=== PATIENT | male | born 1975 | race Caucasian/White ===

== ENCOUNTER → 2021-05-14 14:51 | Outpatient (CLI) | payer OTHER, SELFPAY ==
[2021-05-14 15:40] LABS: Add Manual Diff / Slide Review NO; Basophils Absolute Auto 100 /uL (0-100); Basophils Percent Auto 0.9 % (0-2); Eosinophils Absolute Auto 300 /uL (0-450); Eosinophils Percent Auto 2.6 % (2-4); Hematocrit 46.8 % (41-53); Hemoglobin 15.9 g/dL (13.5-17.5); Lymphocytes Absolute Auto 2600 /uL (1100-4500); Mean Corpuscular HGB Conc 33.9 % (30-36); Mean Corpuscular Hemoglobin 33.5 PG (26-34); Mean Corpuscular Volume 98.9 fL (80-100); Monocytes Absolute Auto 600 /uL (0-900); Monocytes Percent Auto 5.3 % (3-14); Neutrophils Absolute Auto 7700 /uL (1500-7000); Neutrophils Percent Auto 68.2 % (50-75); Platelet Count 314 X10^3/uL (150-400); Red Blood Cell Count 4.73 X10^6/uL (4.5-5.9); Red Cell Distribution Width 13.7 % (11.6-14.8); White Blood Cell Count 11.3 X10^3/uL (4.5-11.0)
[2021-05-14 15:56] LABS: Alanine Aminotransferase 23 IU/L (<50); Albumin 4.5 g/dL (3.5-5.0); Albumin Globulin Ratio 1.6 (1.0-2.8); Alkaline Phosphatase 116 U/L (38-126); Aspartate Aminotransferase 31 IU/L (17-59); BUN Creatinine Ratio 8.6 (6-22); Bilirubin Total 0.7 mg/dL (0.2-1.3); Blood Urea Nitrogen 8 mg/dL (9-20); Calcium 9.6 mg/dL (8.4-10.2); Carbon Dioxide 27 mmol/L (22-32); Chloride 107 mmol/L (98-107); Estimated Glomerular Filt Rate > 60.0 mL/min (>60); Globulin 2.9 g/dL (1.7-4.1); Glucose 97 mg/dL (70-100); HEMOLYSIS < 15 (0-50); Lipase 85 U/L (23-300); Potassium 3.5 mmol/L (3.4-5.1); Sodium 140 mmol/L (137-145); Total Protein 7.4 g/dL (6.3-8.2)
[2021-05-14 16:28] LABS: Creatinine Urine Random 295.5 mg/dL
[2021-05-14 16:33] LABS: Microalbumin Urine Random 0.9 mg/dL (0-1.6)
== END ==
PROVIDERS: PCP Family Medicine; Referring Provider Family Medicine; Visit Provider Family Medicine
DX: R10.9 Unspecified abdominal pain (principal); Z90.49 Acquired absence of other specified parts of digestive tract
CPT/HCPCS: 36415; 80053; 82043; 82570; 83690; 85025

== ENCOUNTER → 2021-10-30 09:43 | Outpatient (CLI) | payer OTHER, MEDICAID, SELFPAY ==
[2021-10-30 10:25] LABS: Add Manual Diff / Slide Review NO; Basophils Absolute Auto 100 /uL (0-100); Basophils Percent Auto 1.1 % (0-2); Eosinophils Absolute Auto 400 /uL (0-450); Eosinophils Percent Auto 5.4 % (2-4); Hematocrit 46.9 % (41-53); Hemoglobin 16.3 g/dL (13.5-17.5); Lymphocytes Absolute Auto 2400 /uL (1100-4500); Lymphocytes Percent Auto 35.5 % (25-40); Mean Corpuscular HGB Conc 34.7 % (30-36); Mean Corpuscular Hemoglobin 34.4 PG (26-34); Mean Corpuscular Volume 99.1 fL (80-100); Monocytes Absolute Auto 400 /uL (0-900); Monocytes Percent Auto 5.8 % (3-14); Neutrophils Absolute Auto 3500 /uL (1500-7000); Neutrophils Percent Auto 52.2 % (50-75); Platelet Count 296 X10^3/uL (150-400); Red Blood Cell Count 4.73 X10^6/uL (4.5-5.9); Red Cell Distribution Width 13.5 % (11.6-14.8); White Blood Cell Count 6.7 X10^3/uL (4.5-11.0)
[2021-10-30 10:38] LABS: Hemoglobin A1C% w Est Avg Glu 5.3 % (4.0-6.0)
[2021-10-30 10:49] LABS: Erythrocyte Sedimentation Rate 1 MM/HR (0-15)
[2021-10-30 11:23] LABS: Alanine Aminotransferase 27 IU/L (<50); Albumin Globulin Ratio 1.7 (1.0-2.8); Alkaline Phosphatase 120 U/L (38-126); Aspartate Aminotransferase 32 IU/L (17-59); BUN Creatinine Ratio 15.7 (6-22); Bilirubin Total 1.3 mg/dL (0.2-1.3); Blood Urea Nitrogen 18 mg/dL (9-20); Calcium 9.8 mg/dL (8.4-10.2); Carbon Dioxide 26 mmol/L (22-32); Chloride 104 mmol/L (98-107); Estimated Glomerular Filt Rate > 60.0 mL/min (>60); Globulin 2.9 g/dL (1.7-4.1); Glucose 92 mg/dL (70-100); HEMOLYSIS < 15 (0-50); Potassium 4.6 mmol/L (3.4-5.1); Sodium 140 mmol/L (137-145); Total Protein 7.9 g/dL (6.3-8.2)
[2021-10-30 11:57] LABS: TSH w/ Reflex to FT4 1.28 uIU/mL (0.47-4.68)
== END ==
PROVIDERS: PCP Family Medicine; Referring Provider Family Medicine; Visit Provider Family Medicine
DX: D35.00 Benign neoplasm of unspecified adrenal gland (principal); D72.829 Elevated white blood cell count, unspecified; I10 Essential (primary) hypertension; R00.0 Tachycardia, unspecified
CPT/HCPCS: 36415; 80053; 83036; 84443; 85025; 85651

== ENCOUNTER → 2021-11-03 09:37 | Outpatient (CLI) | payer OTHER, MEDICAID, SELFPAY ==
[2021-11-06 09:53] LABS: Dopamine, Ur 24hr 136 ug/24 hr (0-510); Epinephrine, U 24hr 13 ug/24 hr (0-20); Norepinephrine Ur 24hr 50 ug/24 hr (0-135)
[2021-11-06 11:34] LABS: Normetanephrine Total 382 ug/24 hr (156-729); Urine, Metanephrine 205 ug/L (Undefined); Urine, Normetanephrine 382 ug/L (Undefined)
== END ==
PROVIDERS: PCP Family Medicine; Referring Provider Family Medicine; Visit Provider Family Medicine
DX: R00.0 Tachycardia, unspecified (principal); D72.829 Elevated white blood cell count, unspecified; I10 Essential (primary) hypertension; D35.00 Benign neoplasm of unspecified adrenal gland
CPT/HCPCS: 82384; 83835

== ENCOUNTER → 2021-11-05 14:20 | Outpatient (CLI) | payer OTHER, MEDICAID, SELFPAY ==
--- NOTE | 2021-11-05 14:21 | DI.CT.S_ITS ---
PROCEDURE: CT ABDOMEN PELVIS W CON INDICATIONS: Patient has unexplained tachycardia, diaphoresis HTN TECHNIQUE: After the administration of oral and IV contrast, axial sections were acquired from the lung bases to the pubic symphysis. Coronal and sagittal reformats were performed. For radiation dose reduction, the following was used: automated exposure control, adjustment of mA and/or kV according to patient size. COMPARISON: [facility], CT, CT ABDOMEN PELVIS WITH CONTRAST, 11/22/2019, 10:06. [facility], CT, CT ABDOMEN PELVIS WITH CONTRAST, 10/11/2019, 16:59. [facility], CT, CT ABDOMEN PELVIS WITH CONTRAST, 12/30/2018, 16:46. [facility], CT, CT ABDOMEN PELVIS WITH CONTRAST, 04/15/2020, 16:10. Outside Film, CT, CT ANGIO ABDOMEN PELVIS, 06/07/2020, 12:59. [facility], CT, CT ABDOMEN PELVIS WITH CONTRAST, 09/24/2021, 20:19. FINDINGS: Image quality: Excellent. Lung bases: Unremarkable. Heart: No significant findings. ABDOMEN: Liver: Unremarkable. A 0.5 cm low-density nodule in the left hepatic lobe is unchanged, most likely a cyst. Gallbladder: Surgically absent. Biliary ducts: Unremarkable. Pancreas: Unremarkable. Spleen: Unremarkable. Adrenal Glands: Mild thickening of the medial limb of the left adrenal. A small left adrenal nodule measuring 0.8 cm as seen on the last exam. Kidneys and Ureters: Unremarkable. Stomach and Bowel: Stomach, small bowel loops, and colon are unremarkable. Appendix is normal. Peritoneum: No abnormal intraperitoneal fluid. No free air. Ventral Wall: No hernia. Abdominal Nodes: No retroperitoneal or mesenteric adenopathy by size criteria. Vessels: Aorta and inferior vena cava are normal in size. PELVIS: Pelvic Organs: Unremarkable. Bladder: Unremarkable. Pelvic Nodes: No enlarged lymph nodes. Miscellaneous: No inguinal hernias are seen. Bones: Unremarkable. IMPRESSION: 1. No acute abnormalities in abdomen or pelvis. 2. Stable 0.8 cm left adrenal nodule. 3. A 0.5 cm indeterminate hypodense nodule in liver, most likely a cyst. Dictated by: Teri Smith M.D. on 11/05/2021 at 17:32 Approved by: Teri Smith M.D. on 11/06/2021 at 9:36
== END ==
PROVIDERS: PCP Family Medicine; Referring Provider Family Medicine; Visit Provider Family Medicine
DX: K76.9 Liver disease, unspecified (principal); D35.00 Benign neoplasm of unspecified adrenal gland; D72.829 Elevated white blood cell count, unspecified; R00.0 Tachycardia, unspecified; I10 Essential (primary) hypertension
CPT/HCPCS: 74177; Q9967

== ENCOUNTER → 2022-03-20 16:05 | Outpatient (CLI) | payer OTHER, MEDICAID, SELFPAY ==
[2022-03-20 17:57] LABS: Alanine Aminotransferase 25 IU/L (<50); Albumin 4.5 g/dL (3.5-5.0); Albumin Globulin Ratio 1.6 (1.0-2.8); Alkaline Phosphatase 99 U/L (38-126); Aspartate Aminotransferase 30 IU/L (17-59); BUN Creatinine Ratio 9.6 (6-22); Bilirubin Total 0.5 mg/dL (0.2-1.3); Blood Urea Nitrogen 10 mg/dL (9-20); Calcium 9.3 mg/dL (8.4-10.2); Carbon Dioxide 28 mmol/L (22-32); Chloride 105 mmol/L (98-107); Estimated Glomerular Filt Rate > 60 mL/min (>60); Globulin 2.8 g/dL (1.7-4.1); Glucose 85 mg/dL (70-100); HEMOLYSIS < 15 (0-50); Potassium 4.2 mmol/L (3.4-5.1); Sodium 139 mmol/L (137-145); Total Protein 7.3 g/dL (6.3-8.2)
[2022-03-20 17:58] LABS: Hemoglobin A1C% w Est Avg Glu 5.3 % (4.0-6.0)
[2022-03-20 18:04] LABS: Rheumatoid Factor < 8.6 IU/mL (<12.0)
[2022-03-20 18:25] LABS: Erythrocyte Sedimentation Rate 1 MM/HR (0-15)
[2022-03-25 15:08] LABS: ANA Screen, IFA Negative (.); CCP Antibodies IgG/IgA 8 units (0-19)
== END ==
PROVIDERS: PCP Family Medicine; Referring Provider Family Medicine; Visit Provider Family Medicine
DX: F41.9 Anxiety disorder, unspecified (principal); M25.50 Pain in unspecified joint; R00.0 Tachycardia, unspecified
CPT/HCPCS: 36415; 80053; 83036; 85651; 86038; 86200; 86430

== ENCOUNTER → 2023-07-22 14:41 | Outpatient (CLI) | payer OTHER, SELFPAY | PROVIDERS: PCP Family Medicine; Visit Provider Physician Assistant | DX: D72.829 Elevated white blood cell count, unspecified (principal); E27.40 Unspecified adrenocortical insufficiency | CPT/HCPCS: 87086 ==

== ENCOUNTER → 2023-07-22 14:58 | Outpatient (CLI) | payer OTHER, SELFPAY ==
--- NOTE | 2023-07-22 15:00 | DI.RAD.S_ITS ---
PROCEDURE: XR CHEST 2V INDICATIONS: Elevated WBCs w/L shift Smoker TECHNIQUE: 2 views of the chest were acquired. COMPARISON: None. FINDINGS: Surgical changes and devices: None. Lungs and pleura: Lungs are clear. No pleural effusions or pneumothorax. Mediastinum: Mediastinal contours are normal. Heart size is normal. Bones and chest wall: No suspicious bony abnormalities. Soft tissues appear unremarkable. IMPRESSION: No acute cardiopulmonary abnormality is seen. Approved by: Cristi Limon M.D. on 07/22/2023 at 19:27
== END ==
PROVIDERS: PCP Family Medicine; Referring Provider Physician Assistant; Visit Provider Physician Assistant
DX: D72.829 Elevated white blood cell count, unspecified (principal); E27.40 Unspecified adrenocortical insufficiency
CPT/HCPCS: 71046; 87086

== ENCOUNTER → 2023-08-04 16:14 | Outpatient (CLI) | payer OTHER, SELFPAY ==
[2023-08-04 17:51] LABS: Hematocrit 48.8 % (41-53); Mean Corpuscular HGB Conc 34.8 % (30-36); Mean Corpuscular Hemoglobin 34.6 PG (26-34); Mean Corpuscular Volume 99.4 fL (80-100); Platelet Count 347 X10^3/uL (150-400); Red Blood Cell Count 4.91 X10^6/uL (4.5-5.9); Red Cell Distribution Width 13.3 % (11.6-14.8)
[2023-08-04 20:21] LABS: Neutrophils Absolute Manual 7800 /uL (3000-5900); Total Cells Counted 100
[2023-08-04 20:22] LABS: Macrocytosis 1+
[2023-08-04 20:53] LABS: Alanine Aminotransferase 41 IU/L (<50); Albumin 4.7 g/dL (3.5-5.0); Albumin Globulin Ratio 1.3 (1.0-2.8); Alkaline Phosphatase 127 U/L (38-126); Aspartate Aminotransferase 40 IU/L (17-59); BUN Creatinine Ratio 13.2 (6-22); Blood Urea Nitrogen 14 mg/dL (9-20); Calcium 10.1 mg/dL (8.4-10.2); Carbon Dioxide 23 mmol/L (22-32); Chloride 104 mmol/L (98-107); Estimated Glomerular Filt Rate > 60 mL/min (>60); Globulin 3.7 g/dL (1.7-4.1); Glucose 93 mg/dL (70-100); HEMOLYSIS < 15 (0-50); Sodium 139 mmol/L (137-145); Total Protein 8.4 g/dL (6.3-8.2)
== END ==
PROVIDERS: PCP Family Medicine; Referring Provider Family Medicine; Visit Provider Family Medicine
DX: E27.40 Unspecified adrenocortical insufficiency (principal); M25.50 Pain in unspecified joint; D72.829 Elevated white blood cell count, unspecified
CPT/HCPCS: 36415; 80053; 85025

== ENCOUNTER → 2023-08-05 11:53 | Outpatient (CLI) | payer OTHER, SELFPAY ==
--- NOTE | 2023-08-05 11:55 | DI.RAD.S_ITS ---
PROCEDURE: XR TIBIA FIBULA LT 2V INDICATIONS: lower leg pain TECHNIQUE: 2 views of the tibia and fibula were acquired. COMPARISON: None. FINDINGS: Bones: No fractures or dislocations. No suspicious bony lesions. Soft tissues: No suspicious soft tissue calcifications or masses. IMPRESSION: No acute bony abnormality. Dictated by: Jaylen Ceron M.D. on 08/05/2023 at 15:32 Approved by: Jaylen Ceron M.D. on 08/05/2023 at 15:32
--- NOTE | 2023-08-05 11:55 | DI.RAD.S_ITS ---
PROCEDURE: XR LUMBAR SPINE MIN 4V INDICATIONS: back pain TECHNIQUE: 5 views of the lumbar spine were acquired, including bilateral oblique views. COMPARISON: None. FINDINGS: Bones: 5 nonrib-bearing vertebrae are present. There is normal bony alignment. No vertebral body compression fractures. No suspicious bony lesions. Soft tissues: Overlying bowel gas pattern is normal. No suspicious soft tissue calcifications. Oblique images: No pars defects. IMPRESSION: No acute bony abnormality. Dictated by: Jaylen Ceron M.D. on 08/05/2023 at 15:33 Approved by: Jaylen Ceron M.D. on 08/05/2023 at 15:33
== END ==
PROVIDERS: PCP Family Medicine; Referring Provider Family Medicine; Visit Provider Family Medicine
DX: M79.605 Pain in left leg (principal); M54.9 Dorsalgia, unspecified; D72.829 Elevated white blood cell count, unspecified
CPT/HCPCS: 72110; 73590

== ENCOUNTER → 2024-11-17 17:34 | Outpatient (CLI) | payer BC, SELFPAY ==
[2024-11-17 19:20] LABS: Appearance Urine UA CLEAR; Bilirubin Urine UA NEGATIVE (NEGATIVE); Color Urine UA YELLOW; Glucose Urine UA NEGATIVE (Negative); Ketones Urine UA NEGATIVE (NEGATIVE); Leukocyte Esterase Urine UA NEGATIVE (NEGATIVE); Nitrite Urine UA NEGATIVE (Negative); Occult Blood Urine UA NEGATIVE (Negative); Protein Urine UA NEGATIVE (Negative)
[2024-11-17 19:52] LABS: Bacteria Urine None Seen; Culture Indicated Urine Cult Not Indicated; RBC Urine None Seen (0-5/HPF); Squamous Epithelial Cell Urine None Seen (0-5/HPF); Urine Volume 10mL (spun); WBC Urine None Seen (0-5/HPF)
== END ==
PROVIDERS: PCP Family Medicine; Referring Provider Family Medicine; Visit Provider Family Medicine
DX: N39.0 Urinary tract infection, site not specified (principal)
CPT/HCPCS: 81001